=== PATIENT | male | born 1955 | race Caucasian/White ===

== ENCOUNTER → 2023-01-06 | Outpatient (CLI) | payer MEDICARE ==
[~2023-01-06] MED LIST: AMLO10 PO; AMLO5 PO; ATEN100 PO; ATOR20 PO; ENOX80I SC; LEVSOD100 PO; LISI20 PO; METO25 PO; NAPR500 PO; NICO14TP TOP; OXYACE5T PO; PRAV40 PO; Pravastatin Sod80 MG PO; TERA5 PO; WARF5 PO
[2023-01-06 16:16] LABS: BASOPHILS PERCENT AUTO 1 % (0-2); EOSINOPHILS ABSOLUTE AUTO 0.26 K/mm3 (0.00-0.68); EOSINOPHILS PERCENT AUTO 3 % (0-6); Hematocrit 38.3 % (37.0-53.0); Hemoglobin 12.9 g/dL (13.5-17.5); IMMATURE GRAN ABSOLUTE AUTO 0.02 K/mm3 (0.00-0.10); IMMATURE GRAN PERCENT AUTO 0 % (0-1); LYMPHOCYTES ABSOLUTE AUTO 2.83 K/mm3 (0.84-5.20); LYMPHOCYTES PERCENT AUTO 29 % (21-46); MONOCYTES ABSOLUTE AUTO 0.68 K/mm3 (0.16-1.47); MONOCYTES PERCENT AUTO 7 % (4-13); Mean Corpuscular HGB 31.6 pg (26.0-34.0); Mean Corpuscular HGB Conc 33.7 g/dL (31.5-36.5); Mean Corpuscular Volume 94 fL (80-100); Mean Platelet Volume 9.8 fL (9.1-12.4); NEUTROPHILS ABSOLUTE AUTO 5.85 K/mm3 (1.96-9.15); NEUTROPHILS PERCENT AUTO 60 % (41-73); Platelet Count 293 K/mm3 (150-400); RDW Coefficient Variation 13.8 % (11.7-14.2); RDW Standard Deviation 47.6 fL (35.1-46.3); Red Blood Cell Count 4.08 M/mm3 (4.30-5.90); White Blood Cell Count 9.74 K/mm3 (4.00-11.30)
[2023-01-06 17:21] LABS: Alanine Aminotransfer (ALT/SGP 22 U/L (12-78); Albumin, Blood 4.1 g/dL (3.4-5.0); Alk Phos 70 U/L (50-136); Anion Gap 8 mmol/L (6-16); Aspartate Aminotrans (AST/SGOT 38 U/L (12-37); Bilirubin, Total 1.1 mg/dL (0.1-1.0); Blood Urea Nitrogen 12 mg/dL (8-24); Bun/Creatinine Ratio 8.1 (12.0-20.0); CHOL/HDL RATIO 8.1; CO2, Blood 27 mmol/L (21-32); Calcium, Blood 9.8 mg/dL (8.5-10.1); Chloride, Blood 97 mmol/L (98-108); Cholesterol 266 mg/dL (50-200); Creatinine, Blood 1.49 mg/dL (0.60-1.20); Free Thyroxine 0.47 ng/dL (0.70-1.60); Globulin, Blood 4.2 g/dL (2.2-4.0); Glomerular Filtration Rate 50 (60-); Glucose, Blood 106 mg/dL (70-99); HDL Cholesterol 33 mg/dL (>39); Low Density Lipoprotein Chol 198 mg/dL (0-110); Potassium, Blood 3.3 mmol/L (3.5-5.5); Sodium, Blood 132 mmol/L (136-145); Total Protein, Blood 8.3 g/dL (6.4-8.2); Triglycerides 175 mg/dL (30-160); Very Low Density Lipoprot Chol 35 mg/dL (6-32)
== END | disposition home or self-care (01) ==
LOC: LAB SHORT 10:25 → LAB 10:25
PROVIDERS: Nurse Practitioner Family
DX: E03.9 Hypothyroidism, unspecified (principal); I10 Essential (primary) hypertension
CPT/HCPCS: 80053; 80061; 84439; 84443; 85025

== ENCOUNTER → 2023-04-07 | Outpatient (CLI) | payer MEDICARE ==
[2023-04-07 13:44] LABS: Free Thyroxine 0.84 ng/dL (0.70-1.60); Thyroid Stimulating Hormone 12.4 uIU/mL (0.360-4.800)
== END ==
LOC: LAB SHORT 11:28 → LAB 11:28
PROVIDERS: Nurse Practitioner Family
DX: E03.9 Hypothyroidism, unspecified (principal)
CPT/HCPCS: 84439; 84443

== ENCOUNTER → 2024-08-03 | Outpatient (CLI) | payer MEDICARE ==
[2024-08-03 19:21] LABS: Alanine Aminotransfer (ALT/SGP 25 U/L (12-78); Albumin, Blood 3.7 g/dL (3.4-5.0); Albumin/Globulin Ratio 0.9 (0.8-1.8); Alk Phos 93 U/L (50-136); Anion Gap 11 mmol/L (3-11); Aspartate Aminotrans (AST/SGOT 34 U/L (12-37); Bilirubin, Total 0.6 mg/dL (0.1-1.0); Blood Urea Nitrogen 25 mg/dL (8-24); Bun/Creatinine Ratio 14.1 (12.0-20.0); CHOL/HDL RATIO 2.9; CO2, Blood 27 mmol/L (21-32); Chloride, Blood 100 mmol/L (98-108); Cholesterol 161 mg/dL (50-200); Creatinine, Blood 1.77 mg/dL (0.60-1.20); Globulin, Blood 4.1 g/dL (2.2-4.0); Glomerular Filtration Rate 41 (60-); Glucose, Blood 82 mg/dL (70-99); HDL Cholesterol 55 mg/dL (>39); LDL/HDL RATIO 1.6; Low Density Lipoprotein Chol 88 mg/dL (0-110); Potassium, Blood 2.7 mmol/L (3.5-5.5); Sodium, Blood 135 mmol/L (136-145); Total Protein, Blood 7.8 g/dL (6.4-8.2); Triglycerides 89 mg/dL (30-160); Very Low Density Lipoprot Chol 17 mg/dL (6-32)
[2024-08-03 19:27] LABS: BASOPHILS ABSOLUTE AUTO 0.12 K/mm3 (0.00-0.23); BASOPHILS PERCENT AUTO 1 % (0-2); EOSINOPHILS ABSOLUTE AUTO 0.54 K/mm3 (0.00-0.68); EOSINOPHILS PERCENT AUTO 5 % (0-6); Hematocrit 39.5 % (37.0-53.0); Hemoglobin 12.9 g/dL (13.5-17.5); IMMATURE GRAN ABSOLUTE AUTO 0.03 K/mm3 (0.00-0.10); IMMATURE GRAN PERCENT AUTO 0 % (0-1); LYMPHOCYTES PERCENT AUTO 44 % (21-46); MONOCYTES ABSOLUTE AUTO 0.56 K/mm3 (0.16-1.47); MONOCYTES PERCENT AUTO 5 % (4-13); Mean Corpuscular HGB 30.6 pg (26.0-34.0); Mean Corpuscular HGB Conc 32.7 g/dL (31.5-36.5); Mean Corpuscular Volume 94 fL (80-100); Mean Platelet Volume 10.1 fL (9.1-12.4); NEUTROPHILS ABSOLUTE AUTO 5.01 K/mm3 (1.96-9.15); NEUTROPHILS PERCENT AUTO 45 % (41-73); Platelet Count 392 K/mm3 (150-400); RDW Coefficient Variation 13.7 % (11.7-14.2); RDW Standard Deviation 46.5 fL (35.1-46.3); Red Blood Cell Count 4.22 M/mm3 (4.30-5.90); White Blood Cell Count 11.16 K/mm3 (4.00-11.30)
== END ==
LOC: LAB 10:00 → LAB SHORT 10:00
PROVIDERS: Nurse Practitioner Family
DX: E03.9 Hypothyroidism, unspecified (principal); E78.5 Hyperlipidemia, unspecified
CPT/HCPCS: 80053; 80061; 84439; 84443; 85025

== ENCOUNTER 2024-11-15 13:29 | Inpatient (IN) | payer MEDICARE, OTHER ==
[~2024-11-15] VITALS: Ht 175.3 cm; Wt 71.9 kg
[2024-11-15] MEDS ORDERED: NS 1,000 ML IV SCH ×2 (13:50→17:50)
[2024-11-15 14:36] LABS: Hematocrit 27.3 % (37.0-53.0); Hemoglobin 8.8 g/dL (13.5-17.5); Mean Corpuscular HGB Conc 32.2 g/dL (31.5-36.5); Mean Corpuscular Volume 88 fL (80-100); NRBC ABSOLUTE 0.00 K/mm3 (0.00-0.02); NRBC Auto 0.0 /100 WBC (0.0-0.2); Platelet Count 315 K/mm3 (150-400); RDW Coefficient Variation 14.9 % (11.7-14.2); RDW Standard Deviation 47.8 fL (35.1-46.3)
[2024-11-15 15:26] LABS: Alanine Aminotransfer (ALT/SGP 24.0 U/L (12-78); Albumin, Blood 2.9 g/dL (3.4-5.0); Albumin/Globulin Ratio 0.6 (0.8-1.8); Anion Gap 17.0 mmol/L (3-11); Aspartate Aminotrans (AST/SGOT 15.0 U/L (12-37); Bilirubin, Total 0.3 mg/dL (0.1-1.0); Blood Urea Nitrogen 163.0 mg/dL (8-24); CO2, Blood 17.0 mmol/L (21-32); Calcium, Blood 8.3 mg/dL (8.5-10.1); Chloride, Blood 99.0 mmol/L (98-108); Creatinine, Blood 16.0 mg/dL (0.60-1.20); Globulin, Blood 4.9 g/dL (2.2-4.0); Glucose, Blood 113.0 mg/dL (70-99); Potassium, Blood 3.9 mmol/L (3.5-5.5); Sodium, Blood 129.0 mmol/L (136-145); Total Protein, Blood 7.8 g/dL (6.4-8.2)
[2024-11-15 15:44] LABS: BASOPHILS ABSOLUTE MAN 0.23 K/mm3 (0.00-0.23); BASOPHILS PERCENT MAN 1 % (0-2); EOSINOPHILS ABSOLUTE MAN 1.40 K/mm3 (0.00-0.68); EOSINOPHILS PERCENT MAN 6 % (0-6); LYMPHOCYTES ABSOLUTE MAN 15.26 K/mm3 (0.84-5.20); LYMPHOCYTES PERCENT MAN 65 % (21-46); MONOCYTES ABSOLUTE MAN 0.23 K/mm3 (0.16-1.47); MONOCYTES PERCENT MAN 1 % (4-13); NEUTROPHILS ABSOLUTE MAN 6.34 K/mm3 (1.96-9.15); SEG NEUTROPHILS PERCENT MAN 27 % (41-73)
[2024-11-15] MEDS ORDERED: Ondansetron HCl 2 MG / ML 2ML Vial IV PRN (17:50)
[2024-11-15] MEDS ORDERED: DiphenhydrAMINE HCL/Zinc Acet Cream TOP PRN (17:55)
[2024-11-15 19:06] LABS: pH Blood Venous 7.26 (7.34-7.37)
[2024-11-15 19:38] LABS: pH Blood Venous 7.27 (7.34-7.37)
[2024-11-15 19:49] VITALS: BP 141/66
[2024-11-15 20:09] LABS: Thyroid Stimulating Hormone 354.000 uIU/mL (0.360-4.800)
[2024-11-15] MEDS ORDERED: Heparin Sodium,Porcine 5,000 UNIT/0.5 ML SDV SC SCH (21:00)
[2024-11-15] MEDS ORDERED: Darbepoetin (Pharmacy Consult) SC SCH (21:05)
[2024-11-15] MEDS ORDERED: Darbepoetin Alfa in Polysorbat 25 MCG/0.42 ML Syringe SC ONE (21:20)
[2024-11-15] MEDS ORDERED: Sodium Bicarb 8.4% Inj 150 MEQ in Dextrose 5% 1,000 ML IV SCH (22:35)
[2024-11-15 23:03] LABS: Anion Gap 19.0 mmol/L (3-11); Blood Urea Nitrogen 156.0 mg/dL (8-24); CO2, Blood 14.0 mmol/L (21-32); Calcium, Blood 8.0 mg/dL (8.5-10.1); Chloride, Blood 101.0 mmol/L (98-108); Creatinine, Blood 14.8 mg/dL (0.60-1.20); Glucose, Blood 102.0 mg/dL (70-99); Potassium, Blood 4.1 mmol/L (3.5-5.5); Sodium, Blood 130.0 mmol/L (136-145)
[2024-11-15 23:30] VITALS: BP 172/69
--- NOTE | 2024-11-16 01:19 | NUR ---
PT ARRIVED TO THE UNIT AT ABOUT 1943. ALERT AND ORIENTED. TWO RN'S SKIN CHECK COMPLETED WITH PHOTOS PLACED IN CHART. PT WITH BUE SWELLING NEGATIVE FOR DVT.PT STATES HE FELL AT HOME, USES A WHEELCHAIR AND CANE FOR AMULATION AT BASELINE. PH AND CR ELEVATED. MD UP AND MD SEVERINO NOTIFIED. OK WITH B/P OF 172/69. PT STATES HE HAS NOT TAKEN ANY OF HIS MEDS FOR MORE THAN THREE WEEKS. ALSO STATES HE HAS LEFT SIDED WEAKNESS AT BASELINE FROM PREVIOUS STROKE. ON BICARB DRIP.
[2024-11-16 03:43] VITALS: BP 178/77
[2024-11-16 04:10] LABS: Hematocrit 28.3 % (37.0-53.0); Hemoglobin 9.2 g/dL (13.5-17.5); Mean Corpuscular HGB Conc 32.5 g/dL (31.5-36.5); Mean Corpuscular Volume 87 fL (80-100); NRBC ABSOLUTE 0.00 K/mm3 (0.00-0.02); NRBC Auto 0.0 /100 WBC (0.0-0.2); Platelet Count 335 K/mm3 (150-400); RDW Coefficient Variation 14.8 % (11.7-14.2); RDW Standard Deviation 47.8 fL (35.1-46.3)
[2024-11-16 04:41] LABS: Magnesium, Blood 1.6 mg/dL (1.6-2.4); Prostate Specific Antigen 0.267 ng/mL (0.000-4.000)
[2024-11-16 04:44] LABS: Alanine Aminotransfer (ALT/SGP 23 U/L (12-78); Albumin, Blood 2.6 g/dL (3.4-5.0); Albumin/Globulin Ratio 0.6 (0.8-1.8); Anion Gap 18 mmol/L (3-11); Aspartate Aminotrans (AST/SGOT 11 U/L (12-37); Bilirubin, Total 0.5 mg/dL (0.1-1.0); CO2, Blood 17 mmol/L (21-32); Calcium, Blood 7.9 mg/dL (8.5-10.1); Chloride, Blood 98 mmol/L (98-108); Globulin, Blood 4.7 g/dL (2.2-4.0); Glucose, Blood 170 mg/dL (70-99); Phosphorus, Blood 6.4 mg/dL (2.5-4.9); Potassium, Blood 3.1 mmol/L (3.5-5.5); Sodium, Blood 130 mmol/L (136-145); Total Protein, Blood 7.3 g/dL (6.4-8.2)
[2024-11-16 04:45] LABS: Blood Urea Nitrogen 165 mg/dL (8-24); Creatinine, Blood 14.80 mg/dL (0.60-1.20)
[2024-11-16 05:00] LABS: Source, Urine Clean Catch
[2024-11-16 05:05] LABS: Bilirubin, Urine Neg (Neg); Color, Urine Yellow (P-Yellow); Glucose Qualitative, Urine 3+ (Neg); Ketones, Urine Neg (Neg); Leukocyte Esterase, Urine 3+ (Neg); Protein, Urine 3+ (Neg); Specific Gravity, Urine 1.010 (1.003-1.022); Urobilinogen, Urine NORM (Normal)
[2024-11-16 05:10] LABS: BASOPHILS ABSOLUTE MAN 0.00 K/mm3 (0.00-0.23); BASOPHILS PERCENT MAN 0 % (0-2); EOSINOPHILS ABSOLUTE MAN 1.73 K/mm3 (0.00-0.68); EOSINOPHILS PERCENT MAN 8 % (0-6); LYMPHOCYTES ABSOLUTE MAN 16.23 K/mm3 (0.84-5.20); LYMPHOCYTES PERCENT MAN 75 % (21-46); MONOCYTES ABSOLUTE MAN 0.00 K/mm3 (0.16-1.47); MONOCYTES PERCENT MAN 0 % (4-13); NEUTROPHILS ABSOLUTE MAN 3.68 K/mm3 (1.96-9.15); SEG NEUTROPHILS PERCENT MAN 17 % (41-73)
[2024-11-16 05:13] LABS: Red Blood Cells, Urine TNTC /hpf (0-2); White Blood Cells, Urine TNTC /hpf (0-5)
[2024-11-16] MEDS ORDERED: Potassium Chloride 10 Meq Tablet SA PO ONE ×2 (05:15→13:10)
--- NOTE | 2024-11-16 06:33 | NUR ---
PT ALERT AND ORIENTED. ONE ASSIST WITH FWW TO BATHROOM. ELECTROLYTES REPLACED THIS MORNING. ZOFRAN ADMINISTERED FOR N&V. NO C/O OF CHEST PAIN. ON SODIUMBICARB DRIP. ON ROOM AIR SATTING GREATER THAN 92%. GARCIA PLACED WAS DRAINING YELLOW URINE BUT CHANGED TO CLOUDY URINE. UA SENT TO LAB. PT ALSO HTN, AWARE. SCATTERED RASHES, SCABS AND SKIN PEELING WITH ITCHINESS. BENADRYL TOPICAL APPLIED WITH SOME RELIEF. CALL ROPER WITHIN REACH. PT STATES AILYN MOSQUEDA IS POA AND WILL REQUEST HIM TO BRING COPY OF ADVANCE DIRECTIVE.
[2024-11-16 07:19] VITALS: BP 118/90
--- NOTE | 2024-11-16 08:50 | NUR ---
MD ADRIANNE malcolm in to see patient and discussed urine results and plan to start an iv abx. bethany agreed to this plan.
[2024-11-16] MEDS ORDERED: CefTRIAXone Sodium 1,000 MG in NS 100 ML IV SCH (09:00)
--- NOTE | 2024-11-16 09:36 | NUR ---
am note this rn assumed care at 0700. vital signs stable. tele sinsu rhythm 70s. patient is alert and oriented x4. neuro is intact. perrla. patient is able to make needs known and uses call light appropriately. patient denies pain, chest pain/pressure or shortness of breath. patient lung sounds clear. patient has scabs scattered throughout, and excoriation on bottom. patietn has cuello in place draining with gravity. see shift assessment for further detials.
[2024-11-16 10:55] VITALS: BP 131/79
[2024-11-16] MEDS ORDERED: Zinc Sulfate 220 MG Cap (Provides 50MG) PO SCH (11:45)
[2024-11-16 13:06] LABS: Albumin, Blood 2.6 g/dL (3.4-5.0); Anion Gap 14 mmol/L (3-11); Blood Urea Nitrogen 147 mg/dL (8-24); CO2, Blood 25 mmol/L (21-32); Calcium, Blood 7.7 mg/dL (8.5-10.1); Chloride, Blood 96 mmol/L (98-108); Creatinine, Blood 14.70 mg/dL (0.60-1.20); Glucose, Blood 93 mg/dL (70-99); Phosphorus, Blood 5.4 mg/dL (2.5-4.9); Potassium, Blood 3.3 mmol/L (3.5-5.5); Sodium, Blood 132 mmol/L (136-145)
[2024-11-16] MEDS ORDERED: Bumetanide 0.25 MG/ML 10ML Vial IV ONE (13:10)
[2024-11-16] MEDS ORDERED: NS 1,000 ML IV SCH (13:15)
[2024-11-16 16:07] VITALS: BP 129/69
--- NOTE | 2024-11-16 17:02 | NUR ---
shift summary patient vitals remain stable. tele sinus rhythm. patient neuro remains intact. patient bicarb infusion stopped and switched to normal saline at 75mls/hr per md briseno. see orders for further detials. no acute changes this shift. plan remains up to date
[2024-11-16 19:52] VITALS: BP 147/96
[2024-11-16 23:15] VITALS: BP 131/73
[2024-11-17 03:39] LABS: Hematocrit 29.9 % (37.0-53.0); Hemoglobin 9.9 g/dL (13.5-17.5)
[2024-11-17 03:42] VITALS: BP 131/60
[2024-11-17 04:29] LABS: Magnesium, Blood 1.3 mg/dL (1.6-2.4)
[2024-11-17 04:33] LABS: Albumin, Blood 2.3 g/dL (3.4-5.0); Anion Gap 16 mmol/L (3-11); Blood Urea Nitrogen 145 mg/dL (8-24); CO2, Blood 21 mmol/L (21-32); Calcium, Blood 7.2 mg/dL (8.5-10.1); Chloride, Blood 100 mmol/L (98-108); Creatinine, Blood 13.70 mg/dL (0.60-1.20); Glucose, Blood 81 mg/dL (70-99); Phosphorus, Blood 5.2 mg/dL (2.5-4.9); Potassium, Blood 3.8 mmol/L (3.5-5.5); Sodium, Blood 133 mmol/L (136-145)
[2024-11-17] MEDS ORDERED: Magnesium Sulf 2 GM/Water 50ML 50 ML IV ONE ×2 (04:50→05:30)
--- NOTE | 2024-11-17 06:47 | NUR ---
PT ALERT AND ORIENTED X4. NO C/O CHEST PAIN OR PRESSURE. GARCIA IN PLACE DRAINING YELLOW URINE. ELECTROLYTES REPLACED THIS AM. MD LOVELL MADE AWARE OF CR CRTICAL AND LOW MG. ON FLUIDS WHICH MD REDUCED RATE TO 50ML/HR. ON ROOM AIR. CALL ROPER WITHIN REACH.
[2024-11-17 07:50] VITALS: BP 118/104
[2024-11-17 12:00] VITALS: BP 94/60
[2024-11-17 15:20] VITALS: BP 128/48
--- NOTE | 2024-11-17 17:41 | NUR ---
SHIFT SUMMARY PATIENT IS AOX4 ABLE TO MAKE NEEDS KNOWN. HI VITALS ARE STABLE. HE IS TOLERATING HIS MEALS. HE DENIES CHEST PAIN OR SOB. HE IS TOLERATING HIS MEALS. HIS ARMS ARE SWOLLEN AND HIS RIGHT LEG IS SWOLLEN. THE HOSPITAIST IS AWARE AND ORDERED US. HE DOES HAVE URINE OUTPUT FROM HIS GARCIA CATHETER. HOSPITALIST SPOKE WITH PATIENT AT BEDSIDE.
[2024-11-17 19:28] VITALS: BP 106/84
[2024-11-17 23:48] VITALS: BP 117/81
[2024-11-18 03:39] VITALS: BP 117/72
--- NOTE | 2024-11-18 05:01 | NUR ---
SHIFT SUMMARY PT A&O X4, CALM, COOPERATIVE TO CARE. HR IN THE 70'S, SINUS RHYTHM. HE DENIES ANY CP/PRESSURE, NUMB/TINGLING. SBP STABLE. O2 >92% ON RA, HE DENIES ANY SOB. GARCIA CATH IN PLACE, DRAINING YELLOW URINE TO GRAVITY. STAT LOCK CHANGED THIS AM. PT HAS FLUIDS INFUSING PER EMAR. WILL MONITOR PT AND REPORT TO ONCOMING RN.
[2024-11-18 07:50] VITALS: BP 141/88
[2024-11-18 08:04] LABS: Hematocrit 25.0 % (37.0-53.0); Hemoglobin 7.8 g/dL (13.5-17.5)
[2024-11-18 08:33] LABS: Magnesium, Blood 1.8 mg/dL (1.6-2.4)
[2024-11-18 08:40] LABS: Albumin, Blood 2.3 g/dL (3.4-5.0); Anion Gap 15 mmol/L (3-11); Blood Urea Nitrogen 111 mg/dL (8-24); CO2, Blood 20 mmol/L (21-32); Calcium, Blood 7.4 mg/dL (8.5-10.1); Chloride, Blood 101 mmol/L (98-108); Creatinine, Blood 12.40 mg/dL (0.60-1.20); Glucose, Blood 77 mg/dL (70-99); Phosphorus, Blood 5.8 mg/dL (2.5-4.9); Potassium, Blood 3.6 mmol/L (3.5-5.5); Sodium, Blood 132 mmol/L (136-145)
[2024-11-18 12:09] VITALS: BP 145/91
[2024-11-18 15:01] VITALS: BP 130/99
--- NOTE | 2024-11-18 15:08 | NUR ---
TRANSFER NOTE PT A&OX4, VSS. C/O OF BILAT ARM SWELLING, CREAM PER EMAR/LOTION. GARCIA CATHETER DRAINING YELLOW URINE TO GRAVITY. LARGE BM THIS AM. UP TO SHOWER AFTER. SAT IN RECLINER AFTER LUNCH. CURRENTLY IN BED NAPPING PRIOR TO TRANSFER. FLUIDS INFUSING PER EMAR. MD SEVERINO CALLED THIS AM WITH LAB RESULTS. PT TRANSFERRED VIA WHEELCHAIR TO ROOM 343, WITH ALL PERSONAL BELONGINGS. REPORT GIVEN TO MEDICAL FLOOR RN.
[2024-11-18 16:24] VITALS: BP 108/84
--- NOTE | 2024-11-18 18:44 | NUR ---
NOTE ASSUMED CARE FOR PT. PT A&OX4. PT ENCOURAGED TO EAT DINNER, PT REPORTS "NOT HUNGRY." PT IN BED, BED IN LOWEST POSITION, PT CALLS APPROPRIATE, CALL LIGHT IN REACH. NO ACUTE CHANGES OCCURED. NS RUNNING AT 50ML/HR.
[2024-11-18 20:38] VITALS: BP 116/82
[2024-11-19 00:42] VITALS: BP 96/58
--- NOTE | 2024-11-19 05:12 | NUR ---
SEW OUT OPERATOR SUMMARY NO ACUTE CHANGES. PT A/OX4. FLUIDS INFUSING AT 50 MLS/HR. PT CONT TO HAVE SWELLING OF BUE WITH DRY AND SCALING SKIN. BLOOD PRESSURE TO LRE. FLOLEY PATENT AND DRAINING TO GRAVITY. POOR APPETITE, NO DINNER EATED. PT DID NOT REQUEST SNACKS, BUT DRINKING SOME FLUIDS. ABLE TO MAKE NEEDS KNOWN. CALL LIGHT ACCESSIBLE. CARE WILL CONTINUE UNTIL REPORT GIVEN TO ONCOMING NURSE.
[2024-11-19 05:36] VITALS: BP 127/50
[2024-11-19 07:47] VITALS: BP 129/104
[2024-11-19 10:23] LABS: Hematocrit 22.5 % (37.0-53.0); Hemoglobin 7.3 g/dL (13.5-17.5)
[2024-11-19 11:10] LABS: Ferritin, Serum 204 ng/mL (26-388); Magnesium, Blood 1.3 mg/dL (1.6-2.4); Total Iron Binding Capacity 271 ug/dL (250-450)
[2024-11-19 11:28] LABS: Albumin, Blood 2.2 g/dL (3.4-5.0); Anion Gap 17 mmol/L (3-11); Blood Urea Nitrogen 114 mg/dL (8-24); CO2, Blood 18 mmol/L (21-32); Calcium, Blood 7.6 mg/dL (8.5-10.1); Chloride, Blood 102 mmol/L (98-108); Glucose, Blood 111 mg/dL (70-99); Phosphorus, Blood 6.5 mg/dL (2.5-4.9); Potassium, Blood 3.6 mmol/L (3.5-5.5); Sodium, Blood 133 mmol/L (136-145)
[2024-11-19 11:34] LABS: Creatinine, Blood 11.10 mg/dL (0.60-1.20)
[2024-11-19 12:15] VITALS: BP 135/81
[2024-11-19] MEDS ORDERED: Folic Acid 1 MG TAB PO SCH (13:00)
[2024-11-19] MEDS ORDERED: FOLI1 PO (13:18)
[2024-11-19] MEDS ORDERED: B-1100 M1 PO (13:18)
[2024-11-19] MEDS ORDERED: SODBIC650 PO (13:18)
[2024-11-19] MEDS ORDERED: CEFP200 PO (13:18)
[2024-11-19] MEDS ORDERED: ZINC220 PO (13:19)
--- NOTE | 2024-11-19 14:14 | NUR ---
DISCHARGE SUMMARY PATIENT DISCHARGED HOME WITH FRIEND TO DRIVE. IV REMOVED WITHOUT COMPLICATION. BILATERAL ARMS 2+ EDEMA AND FLAKY ON DISCHARGE, BILAT LOWER LEGS HAVE DIFFUSE SCABBING, DOC AWARE. CRITICAL CREATININE GIVEN VERBALLY TO DR VILLATORO WHILE IN ROOM. DISCHARGE PACKET GIVEN AND REVIEWED, QUESTIONS ANSWERED, VERBALIZED UNDERSTANDING.
== END 2024-11-19 13:41 | disposition home health service (06) | DRG 683 ==
LOC: ER 13:29 → PCU 17:49 → MEDS 11-18 15:15
PROVIDERS: Emergency Medicine; Family Medicine; Internal Medicine Nephrology; Nurse Practitioner Acute Care; ADMIT Internal Medicine
DX: N17.9 Acute kidney failure, unspecified (principal); E87.1 Hypo-osmolality and hyponatremia; E87.20 Acidosis, unspecified; N39.0 Urinary tract infection, site not specified; E03.9 Hypothyroidism, unspecified; E78.5 Hyperlipidemia, unspecified; I12.9 Hypertensive chronic kidney disease with stage 1 through stage 4 chronic kidney disease, or unspecified chronic kidney disease; N18.9 Chronic kidney disease, unspecified; D63.1 Anemia in chronic kidney disease; D72.820 Lymphocytosis (symptomatic); Z86.73 Personal history of transient ischemic attack (TIA), and cerebral infarction without residual deficits; Z88.0 Allergy status to penicillin; Z79.01 Long term (current) use of anticoagulants; Z79.890 Hormone replacement therapy; Z79.899 Other long term (current) drug therapy
CPT/HCPCS: 36415; 51702; 76770; 80048; 80053; 80069; 81001; 82550; 82607; 82728; 82746; 82803; 83540; 83550; 83605; 83735; 84100; 84439; 84443; 84481; 84484; 85014; 85018; 85025; 87077; 87086; 87186; 93005; 93010; 93970; 93971; 96360; 99285-25; A9270; G0103; J0696; J0881; J1644; J2405; J3475; J7030; J7070

== ENCOUNTER → 2024-11-23 | Outpatient (CLI) | payer MEDICARE, OTHER ==
[~2024-11-23] MED LIST changes: +ALBU90OI INH; +B-1100 M1 PO; +B-COMPLEX WITH1 EAC2 PO; +BENADRYL25 MG PO; +BUME2 PO; +CATAPRES0.1 MG PO; +CEFP200 PO; +EUTHYROX150 MC1 PO; +FOLI1 PO; +LORA.5 PO; +METO50ER PO; +MIDODRINE HCL10 M1 PO; +MORP20L; +SEVEC800 PO; +SODBIC650 PO; +Synthroid200 MCG PO; +VITAMIN B-1100 M1 PO; +ZINC220 PO
[2024-11-24 16:56] LABS: Microalbumin, Urine Quant. 256.0 mg/L (0.000-20.000); Sodium, Urine 38.0 mmol/L (20-110)
== END | disposition home or self-care (01) ==
LOC: LAB SHORT 13:00 → LAB 13:00
PROVIDERS: Internal Medicine Nephrology
DX: N18.4 Chronic kidney disease, stage 4 (severe) (principal); D63.1 Anemia in chronic kidney disease; N25.81 Secondary hyperparathyroidism of renal origin; E55.9 Vitamin D deficiency, unspecified; E78.00 Pure hypercholesterolemia, unspecified; N40.1 Benign prostatic hyperplasia with lower urinary tract symptoms; D51.8 Other vitamin B12 deficiency anemias; D52.8 Other folate deficiency anemias; D50.9 Iron deficiency anemia, unspecified; R94.6 Abnormal results of thyroid function studies; R76.9 Abnormal immunological finding in serum, unspecified; R94.5 Abnormal results of liver function studies; R39.9 Unspecified symptoms and signs involving the genitourinary system
CPT/HCPCS: 82043; 84300

== ENCOUNTER 2024-11-25 13:37 | Inpatient (IN) | payer MEDICARE ==
[~2024-11-25] VITALS: Ht 177.8 cm; Wt 78.0 kg
[~2024-11-25 13:37] MED LIST changes: -ALBU90OI INH; -B-COMPLEX WITH1 EAC2 PO; -BENADRYL25 MG PO; -BUME2 PO; -CATAPRES0.1 MG PO; -EUTHYROX150 MC1 PO; -LORA.5 PO; -METO50ER PO; -MIDODRINE HCL10 M1 PO; -MORP20L; -SEVEC800 PO; -Synthroid200 MCG PO; -VITAMIN B-1100 M1 PO
[2024-11-25] MEDS ORDERED: Lidocaine 2% Jelly Uro-Jet UR ONE (17:20)
[2024-11-25 18:20] VITALS: BP 122/55
[2024-11-25 20:08] VITALS: BP 124/59
[2024-11-25] MEDS ORDERED: Heparin Sodium,Porcine 5,000 UNIT/0.5 ML SDV SC SCH (21:00)
[2024-11-25] MEDS ORDERED: Darbepoetin (Pharmacy Consult) SC SCH (22:55)
[2024-11-25] MEDS ORDERED: Darbepoetin Alfa In Albumn Sol 40 MCG/0.4 ML SC SCH (23:05)
[2024-11-26 02:15] VITALS: BP 98/57
[2024-11-26 05:15] VITALS: BP 92/52
[2024-11-26 05:36] LABS: Hematocrit 22.7 % (37.0-53.0); Hemoglobin 6.9 g/dL (13.5-17.5)
[2024-11-26 06:25] LABS: Magnesium, Blood 1.9 mg/dL (1.6-2.4)
[2024-11-26 06:41] LABS: Albumin, Blood 2.2 g/dL (3.4-5.0); Anion Gap 17 mmol/L (3-11); Blood Urea Nitrogen 121 mg/dL (8-24); CO2, Blood 16 mmol/L (21-32); Calcium, Blood 8.1 mg/dL (8.5-10.1); Chloride, Blood 108 mmol/L (98-108); Creatinine, Blood 11.60 mg/dL (0.60-1.20); Glucose, Blood 75 mg/dL (70-99); Phosphorus, Blood 8.2 mg/dL (2.5-4.9); Potassium, Blood 4.9 mmol/L (3.5-5.5); Sodium, Blood 136 mmol/L (136-145)
[2024-11-26 07:46] VITALS: BP 121/61
[2024-11-26] MEDS ORDERED: Darbepoetin Alfa in Polysorbat 25 MCG/0.42 ML Syringe SC SCH ×2 (09:00→16:00)
[2024-11-26 12:35] VITALS: BP 106/62
[2024-11-26 15:59] VITALS: BP 105/62
[2024-11-26 20:27] VITALS: BP 127/59
[2024-11-27 05:26] LABS: Hematocrit 21.7 % (37.0-53.0); Hemoglobin 6.7 g/dL (13.5-17.5)
[2024-11-27 06:01] LABS: Magnesium, Blood 1.8 mg/dL (1.6-2.4)
[2024-11-27 06:08] LABS: Albumin, Blood 2.2 g/dL (3.4-5.0); Anion Gap 18 mmol/L (3-11); Blood Urea Nitrogen 113 mg/dL (8-24); CO2, Blood 16 mmol/L (21-32); Calcium, Blood 7.8 mg/dL (8.5-10.1); Chloride, Blood 106 mmol/L (98-108); Creatinine, Blood 11.40 mg/dL (0.60-1.20); Glucose, Blood 76 mg/dL (70-99); Phosphorus, Blood 7.9 mg/dL (2.5-4.9); Potassium, Blood 4.7 mmol/L (3.5-5.5); Sodium, Blood 135 mmol/L (136-145)
[2024-11-27 07:53] VITALS: BP 119/63
[2024-11-27] MEDS ORDERED: Zinc Sulfate 220 MG Cap (Provides 50MG) PO SCH (09:00)
[2024-11-27] MEDS ORDERED: Folic Acid 1 MG TAB PO SCH (09:00)
[2024-11-27 13:01] VITALS: BP 109/64
[2024-11-27 15:19] VITALS: BP 110/66
[2024-11-27] MEDS ORDERED: Vitamin B Cmplx/Vit C/Folic Ac 1 Tab PO SCH (18:00)
[2024-11-27 19:57] VITALS: BP 113/49
[2024-11-27 23:33] VITALS: BP 102/64
[2024-11-28] VITALS (19 sets, daily range): BP systolic 94–147; BP diastolic 44–109
[2024-11-28 05:41] LABS: Hematocrit 21.3 % (37.0-53.0); Hemoglobin 6.6 g/dL (13.5-17.5)
[2024-11-28 06:10] LABS: Magnesium, Blood 1.8 mg/dL (1.6-2.4)
[2024-11-28 06:21] LABS: Albumin, Blood 2.2 g/dL (3.4-5.0); Anion Gap 18 mmol/L (3-11); Blood Urea Nitrogen 116 mg/dL (8-24); CO2, Blood 17 mmol/L (21-32); Calcium, Blood 7.6 mg/dL (8.5-10.1); Chloride, Blood 106 mmol/L (98-108); Creatinine, Blood 11.40 mg/dL (0.60-1.20); Glucose, Blood 79 mg/dL (70-99); Phosphorus, Blood 7.5 mg/dL (2.5-4.9); Potassium, Blood 4.5 mmol/L (3.5-5.5); Sodium, Blood 136 mmol/L (136-145)
[2024-11-28] MEDS ORDERED: Ipratropium/Albuterol SulF 2.5-0.5MG/3 ML Amp INH PRN (09:35)
[2024-11-28] MEDS ORDERED: Heparin Sodium 1000 Units/ML 10ML MDV ONE (10:11)
[2024-11-28] MEDS ORDERED: NS 250 ML IV ONE (10:11)
[2024-11-28] MEDS ORDERED: NS 500 ML IV ONE (10:48)
[2024-11-28] MEDS ORDERED: FentaNYL Citrate 50 MCG/ML 2 ML Injection ONE (11:03)
[2024-11-29] VITALS (19 sets, daily range): BP systolic 85–145; BP diastolic 53–127
[2024-11-29 06:03] LABS: Anion Gap 10.0 mmol/L (3-11); Blood Urea Nitrogen 71.0 mg/dL (8-24); CO2, Blood 28.0 mmol/L (21-32); Calcium, Blood 7.7 mg/dL (8.5-10.1); Chloride, Blood 103.0 mmol/L (98-108); Creatinine, Blood 8.15 mg/dL (0.60-1.20); Glucose, Blood 82.0 mg/dL (70-99); Potassium, Blood 4.3 mmol/L (3.5-5.5); Sodium, Blood 137.0 mmol/L (136-145)
[2024-11-29] MEDS ORDERED: CATAPRES0.1 MG PO (12:13)
[2024-11-29] MEDS ORDERED: EUTHYROX150 MC1 PO (12:13)
[2024-11-29] MEDS ORDERED: METO50ER PO (12:14)
[2024-11-29] MEDS ORDERED: LISI20 PO (12:14)
[2024-11-30] VITALS (17 sets, daily range): BP systolic 93–146; BP diastolic 24–83
[2024-11-30 05:10] LABS: Hematocrit 24.6 % (37.0-53.0); Hemoglobin 7.6 g/dL (13.5-17.5); Mean Corpuscular HGB Conc 30.9 g/dL (31.5-36.5); Mean Corpuscular Volume 94 fL (80-100); NRBC ABSOLUTE 0.02 K/mm3 (0.00-0.02); NRBC Auto 0.1 /100 WBC (0.0-0.2); Platelet Count 287 K/mm3 (150-400); RDW Coefficient Variation 18.5 % (11.7-14.2); RDW Standard Deviation 58.2 fL (35.1-46.3)
[2024-11-30 05:59] LABS: Anion Gap 12.0 mmol/L (3-11); Blood Urea Nitrogen 47.0 mg/dL (8-24); CO2, Blood 26.0 mmol/L (21-32); Calcium, Blood 7.6 mg/dL (8.5-10.1); Chloride, Blood 98.0 mmol/L (98-108); Creatinine, Blood 6.36 mg/dL (0.60-1.20); Glucose, Blood 80.0 mg/dL (70-99); Potassium, Blood 3.7 mmol/L (3.5-5.5); Sodium, Blood 132.0 mmol/L (136-145)
[2024-11-30 10:27] LABS: HEPATITIS B SURFACE ANTIBODY 3.36 IU/L
[2024-11-30 10:56] LABS: HBV CORE ANTIBODIES,TOTAL Negative (Negative)
[2024-11-30 10:58] LABS: HBV CORE ANTIBODIES,TOTAL Negative (Negative)
[2024-12-01 00:28] VITALS: BP 109/63
[2024-12-01 03:59] VITALS: BP 124/60
[2024-12-01 05:30] LABS: Hematocrit 23.5 % (37.0-53.0); Hemoglobin 7.1 g/dL (13.5-17.5)
[2024-12-01 06:21] LABS: Albumin, Blood 2.2 g/dL (3.4-5.0); Anion Gap 13 mmol/L (3-11); Blood Urea Nitrogen 35 mg/dL (8-24); CO2, Blood 27 mmol/L (21-32); Calcium, Blood 7.8 mg/dL (8.5-10.1); Chloride, Blood 98 mmol/L (98-108); Creatinine, Blood 5.23 mg/dL (0.60-1.20); Glucose, Blood 97 mg/dL (70-99); Magnesium, Blood 1.8 mg/dL (1.6-2.4); Phosphorus, Blood 3.5 mg/dL (2.5-4.9); Potassium, Blood 3.5 mmol/L (3.5-5.5); Sodium, Blood 134 mmol/L (136-145)
[2024-12-01 07:46] VITALS: BP 133/72
[2024-12-01 09:55] LABS: CORTISOL,U FREE - RATIO TO CRT 5.07 ug/g CRT; CORTISOL,URN FREE - PER VOLUME 3.85 ug/L; CREATININE,URINE - PER VOLUME 76 mg/dL; HOURS COLLECTED Random hr
[2024-12-01 11:15] VITALS: BP 131/75
[2024-12-01] MEDS ORDERED: Synthroid200 MCG PO (12:39)
[2024-12-01] MEDS ORDERED: BUME2 PO (12:40)
[2024-12-01] MEDS ORDERED: SEVEC800 PO (12:40)
[2024-12-01] MEDS ORDERED: B-COMPLEX WITH1 EAC2 PO (12:41)
== END 2024-12-01 16:36 | disposition home health service (06) | DRG 674 ==
LOC: ER 13:37 → MEDS 13:38
PROVIDERS: Internal Medicine Nephrology; ADMIT Internal Medicine
PROC: 30233N1 Transfusion of Nonautologous Red Blood Cells into Peripheral Vein, Percutaneous Approach (ICD-10-PCS; principal; 2024-11-26)
PROC: 0JH60XZ Insertion of Tunneled Vascular Access Device into Chest Subcutaneous Tissue and Fascia, Open Approach (ICD-10-PCS; 2024-11-28)
PROC: 02HV33Z Insertion of Infusion Device into Superior Vena Cava, Percutaneous Approach (ICD-10-PCS; 2024-11-28)
PROC: 5A1D70Z Performance of Urinary Filtration, Intermittent, Less than 6 Hours Per Day (ICD-10-PCS; 2024-11-28)
DX: I12.0 Hypertensive chronic kidney disease with stage 5 chronic kidney disease or end stage renal disease (principal); E87.1 Hypo-osmolality and hyponatremia; J44.1 Chronic obstructive pulmonary disease with (acute) exacerbation; N18.6 End stage renal disease; E87.70 Fluid overload, unspecified; E03.9 Hypothyroidism, unspecified; E78.5 Hyperlipidemia, unspecified; D63.1 Anemia in chronic kidney disease; E83.39 Other disorders of phosphorus metabolism; Z86.73 Personal history of transient ischemic attack (TIA), and cerebral infarction without residual deficits; Z87.440 Personal history of urinary (tract) infections; Z91.148 Patient's other noncompliance with medication regimen for other reason; Z79.890 Hormone replacement therapy; Z79.899 Other long term (current) drug therapy; Z88.0 Allergy status to penicillin
CPT/HCPCS: 36415; 36430; 51702; 71045; 73502; 76937; 80048; 80069; 82530; 83735; 85014; 85018; 85027; 86704; 86850; 86900; 86901; 86923; 87340; 94760; 94761; 99152; 99153; 99284-25; A9270; C1750; C1769; C1894; G0378; J0881; J1644; J3010; J7040; J7050; P9016; Q9967